=== PATIENT | male | born 1985 | race Caucasian/White ===

== ENCOUNTER 2016-10-16 09:16 | Emergency (ER) | payer SELFPAY ==
[~2016-10-16] VITALS: Ht 167.6 cm; Wt 72.7 kg
[2016-10-16 09:19] VITALS: BP 119/71; PULSE 79; RESP 16; TEMP 98.3; O2SAT 99
--- NOTE | 2016-10-16 10:10 | PD ---
HPI Chief Complaint: Injury Time Seen by Provider: 09:46 Travel History International Travel<30 days: No Contact w/Intl Traveler<30days: No Traveled to known affect area: No History of Present Illness HPI This patient complains of 2 things. He dropped a piece of wood on his right foot yesterday while doing yardwork. He has pain and swelling over the right forefoot. Also, 3 days ago he noticed a red raised lesion on the right side of his penis. Denies drainage or fever. Symptoms severity is mild to moderate PFSH Past Medical History Medical History: Denies Significant Hx Diminished Hearing: No Tetanus Vaccination: < 5 Years Past Surgical History Other Surgery: Yes (NECK SX) Social History Alcohol Use: Yes (SOC) Tobacco Use: Yes (1 PPD) Substance Use: No Allergies-Medications (Allergen,Severity, Reaction): Coded Allergies: No Known Allergies (Unverified , 10/16/16) Reported Meds & Prescriptions Reported Meds & Active Scripts Active No Active Prescriptions or Reported Medications Review of Systems General / Constitutional: No: Fever HENT: No: Headaches Cardiovascular: No: Chest Pain or Discomfort Respiratory: No: Cough Physical Exam Narrative Right foot: There is a scrape over the forefoot swelling and tenderness. SKIN: Focused skin assessment reveals no rash or ulcers. Skin is warm and dry. Palpation shows no induration or nodules. GASTROINTESTINAL: Abdomen soft, non-tender, nondistended. Positive bowel sounds. No hepato-splenomegaly, or palpable masses. No guarding. : There is an area of erythema and edema on the right side of the penis. There is no ulceration or vesicle. Data Data Last Documented VS Vital Signs Date Time Temp Pulse Resp B/P Pulse Ox O2 Delivery O2 Flow Rate FiO2 10/16/16 09:19 98.3 79 16 119/71 99 Orders Foot, Complete ([id number]) (10/16/16 ) [facility] Medical Decision Making Medical Screen Exam Complete: Yes Emergency Medical Condition: Yes Medical Record Reviewed: Yes Differential Diagnosis Foot fracture, contusion, infected lesion Narrative Course I have reviewed the patient's electronic medical record. I reviewed his right foot x-rays which are normal Regarding his penile lesion, unclear what this represents. It does not look like a herpetic lesion. There is nothing draining or amenable to culture. I wrote some Bactrim DS. He should follow-up with primary care Diagnosis Primary Impression: Contusion of right foot, initial encounter Additional Impression: Penile lesion Patient Instructions: General Instructions Departure Forms: Tests/Procedures Additional Instructions: The patient was advised to follow up with their physician and return if they worsen. Med/Other Pt SpecificInfo: Prescription(s) given Scripts Sulfamethoxazole-Trimethoprim (Bactrim DS)800-160 Mg Tab1 Tab PO BID #14 TAB Ref 0 Prov:Rome Naqvi MD 10/16/16 Disposition: 01 DISCHARGE HOME Condition: Stable Rome Naqvi MD October 16, 2016 10:10
--- NOTE | 2016-10-16 10:17 | RADHPO ---
EXAM DATE/TIME: 10/16/2016 09:57 [facility] COMPARISON: No previous studies available for comparison. INDICATIONS : Right foot pain; dropped wood on foot yesterday. MEDICAL HISTORY : None. SURGICAL HISTORY : None. ENCOUNTER: Initial ACUITY: 2 days PAIN SCORE: 7/10 LOCATION: Right anterior foot. FINDINGS: Three view examination of the right foot demonstrates no soft tissue swelling, dislocation, or fractu re. The tarsal bones appear intact. The interphalangeal and metatarsophalangeal joints are intact. The calcaneus is intact. Bony mineralization is normal. CONCLUSION: Negative for fracture or dislocation. Follow up in 7-10 days is suggested if symptoms persist. Nikko Lynn MD FACR on October 16, 2016 at 10:14 Board Certified Radiologist. This report was verified electronically.
[2016-10-16] MEDS ORDERED: BACT800T5 PO (10:23)
== END 2016-10-16 10:43 | disposition home or self-care (01) ==
LOC: PHEFT 09:16
DX: S90.31XA Contusion of right foot, initial encounter (principal); N48.89 Other specified disorders of penis; W22.8XXA Striking against or struck by other objects, initial encounter; Y93.H2 Activity, gardening and landscaping
CPT/HCPCS: 73630; 99283